=== PATIENT | female | born 1995 | race Caucasian/White ===

== ENCOUNTER 2021-12-12 00:23 | Inpatient (IN) | payer SELFPAY ==
[2021-12-12] VITALS (1252 sets, daily range): BP systolic 106–119; BP diastolic 60–71; PULSE 74–90; TEMP 97.7–99; O2SAT 66–100
[~2021-12-12] VITALS: Ht 177.8 cm; Wt 79.9 kg
[2021-12-12 00:35] LABS: BASO % 0.2 % (0.0-2.0); GRAN # 8.2 K/mm3 (1.4-6.5); GRAN % 80.5 % (42.2-75.2); HEMATOCRIT 37.8 % (37.0-47.0); HEMOGLOBIN 12.4 g/dl (12.5-16.0); LYMPH # 1.3 K/mm3 (1.2-3.4); LYMPH % 13.1 % (20.0-51.0); MEAN CELL VOLUME 89 fl (80.0-100.0); MEAN CORPUSCULAR HEMOGLOBIN 29 pg (27-31); MEAN CORPUSCULAR HGB CONC 33 g/dl (33.0-37.0); MEAN PLATELET VOLUME 10.8 fl (7.4-10.4); MONO # 0.6 K/mm3 (0.1-0.6); PLATELET COUNT 191 K/mm3 (130-400); RED BLOOD COUNT 4.26 M/mm3 (4.10-5.30); REDCELL DISTRIBUTION WIDTH-CV 12.9 % (11.5-14.5)
[2021-12-12 00:57] LABS: ALANINE AMINOTRANSFERASE 14 U/L (0-55); ALBUMIN 4.3 gm/dL (3.5-5.0); ALKALINE PHOSPHATASE 39 U/L (40-150); ANION GAP 12 mmol/L (7-16); AST,SGOT 14 U/L (5-34); BILIRUBIN,TOTAL 0.8 mg/dL (0.2-1.2); BLOOD UREA NITROGEN 8 mg/dL (7-19); CALCIUM 8.8 mg/dL (8.4-10.2); CARBON DIOXIDE 21 mmol/L (22-29); CHLORIDE 108 mmol/L (98-107); CREATININE, serum 0.81 mg/dL (0.57-1.11); GLUCOSE 129 mg/dL (70-99); POTASSIUM 3.2 mmol/L (3.5-4.5); SODIUM 141 mmol/L (136-145)
[2021-12-12 00:58] LABS: ACETAMINOPHEN < 1.0 ug/mL (10-30); ALCOHOL(ethanol),MEDICAL < 10 mg/dL (0-10); SALICYLATE < 5.0 mg/dL (15.0-30.0)
--- NOTE | 2021-12-12 02:41 | NUR ---
Patient arrived to ICU 8 at 0210. Patient alert and orientated. Answering with minimal words. Placed in perdomo gown and suicide precautions and seizure precautions. Patient educated on plan of care. Belongings sent to security by ED nurse. Did have one episode of emesis while in room. Green bile. Patient denies feeling suicidal at this time. 0242: Alisa from posion control called for updates. Provided. QRSd on recent EKG 109. Alisa reported to closely monitor, goal under 100. Would also like CK added due to Rhabdo risk. 0250: Updated YANIQUE Ochoa. Added orders for CK. Updated potassium orders and patient emesis episode.
[2021-12-12 05:43] LABS: ALBUMIN 3.9 gm/dL (3.5-5.0); BILIRUBIN,TOTAL 0.8 mg/dL (0.2-1.2); CALCIUM 8.6 mg/dL (8.4-10.2); CREATININE, serum 0.75 mg/dL (0.57-1.11); TOTAL PROTEIN 6.4 gm/dL (6.2-8.1)
[2021-12-12 06:30] LABS: COLLECTION METHOD CLEAN CATCH
[2021-12-12 06:38] LABS: PH 6 (5-8); URINE APPEARANCE Clear (CLEAR/HAZY); URINE BACTERIA None Seen /hpf (NONE SEEN); URINE BILIRUBIN Negative (NEGATIVE); URINE BLOOD Negative (NEGATIVE); URINE COLOR Yellow (YELLOW); URINE GLUCOSE Negative (NEGATIVE); URINE KETONE 1+ (NEGATIVE); URINE LEUKOCYTE ESTERASE Negative (NEGATIVE); URINE NITRATE Negative (NEGATIVE); URINE PROTEIN(semi-quant) Negative (NEGATIVE); URINE RBC None Seen /hpf (0-2); URINE UROBILINOGEN Negative (NEGATIVE)
[2021-12-12 06:48] LABS: TRICYCLIC ANTIDEPRESS URINE NEGATIVE
--- NOTE | 2021-12-12 07:14 | NUR ---
Report given to PHYLLIS Kingsley
--- NOTE | 2021-12-12 08:51 | NUR ---
PSYCH CONSULT REQUEST FORM FAXED TO DR CHASE.
--- NOTE | 2021-12-12 09:26 | NUR ---
The patient was admitted for intentional overdose on Wellbutrin. She is on suicide precautions. SW met with the patient. The patient lives in [place] with her , Maykel ([phone]). She reports independence with ADLs and does not have any DME. The patient does not have a PCP and she was not interested in the hospital getting her set up with anyone. She receives her medications at [facility], when needed. The patient does not have a DPOA-HC and she was not interested in completing one at this time. The patient will likely need to be screened by [facility], once medically cleared. KANE to continue to follow.
[2021-12-12 18:26] LABS: CALCIUM 9.4 mg/dL (8.4-10.2); CREATININE, serum 1.05 mg/dL (0.57-1.11); POTASSIUM 3.8 mmol/L (3.5-4.5)
--- NOTE | 2021-12-12 19:54 | NUR ---
Assessment complete and charted. Denies needs.
[2021-12-13] VITALS (846 sets, daily range): BP systolic 104–123; BP diastolic 53–73; PULSE 51–84; TEMP 97.7–98.3; O2SAT 84–100
--- NOTE | 2021-12-13 01:39 | NUR ---
Alisa from posion control called for an update. Reports posion control is signing off the case at this time.
[2021-12-13 06:08] LABS: BASO % 0.4 % (0.0-2.0); EOS % 0.6 % (0.0-4.0); GRAN # 3.9 K/mm3 (1.4-6.5); HEMOGLOBIN 12.1 g/dl (12.5-16.0); LYMPH # 2.3 K/mm3 (1.2-3.4); LYMPH % 33.5 % (20.0-51.0); MEAN CELL VOLUME 91 fl (80.0-100.0); MEAN CORPUSCULAR HEMOGLOBIN 29 pg (27-31); MEAN CORPUSCULAR HGB CONC 32 g/dl (33.0-37.0); MEAN PLATELET VOLUME 10.8 fl (7.4-10.4); MONO # 0.6 K/mm3 (0.1-0.6); MONO % 8.4 % (1.7-9.3); PLATELET COUNT 192 K/mm3 (130-400); RED BLOOD COUNT 4.16 M/mm3 (4.10-5.30); REDCELL DISTRIBUTION WIDTH-CV 13.3 % (11.5-14.5)
[2021-12-13 06:32] LABS: ALBUMIN 4.1 gm/dL (3.5-5.0); BILIRUBIN,TOTAL 0.8 mg/dL (0.2-1.2); CALCIUM 9.2 mg/dL (8.4-10.2); CREATININE, serum 0.86 mg/dL (0.57-1.11); MAGNESIUM 2.2 mg/dL (1.6-2.6); POTASSIUM 4.1 mmol/L (3.5-4.5); TOTAL PROTEIN 6.8 gm/dL (6.2-8.1)
--- NOTE | 2021-12-13 06:34 | NUR ---
Patient had uneventful night. Resting in bed this AM
--- NOTE | 2021-12-13 07:29 | NUR ---
Report given to PHYLLIS Kingsley
--- NOTE | 2021-12-13 09:49 | NUR ---
This morning the patient declines thoughts of suicide and does not wish to do inpatient treatment. The patient does not believe that is the environment for her. Pt does understand the importance of treatment.
--- NOTE | 2021-12-13 10:02 | NUR ---
[facility] notified of need for screen.
--- NOTE | 2021-12-13 10:43 | NUR ---
1016 - FAX CONFIRMATION FOR DOCUMENTS SENT TO [facility].
--- NOTE | 2021-12-13 10:47 | NUR ---
A psych consult was ordered yesterday and the psychiatrist met with the patient. The psychiatrist is recommending inpatient treatment. The patient is declining inpatient treatment at this time. The patient has been medically cleared and the clinical team is ready for [facility] to screen the patient. The patient's RN has contacted and faxed the patient's records to [facility] for them to screen the patient. SW to continue to follow.
--- NOTE | 2021-12-13 14:19 | NUR ---
KANE staffed with the PHYLLIS. [facility] screened the patient and the patient is able to return home with a safety plan. The patient is to discharge home today, 12/13. No additional needs at this time.
--- NOTE | 2021-12-13 14:27 | NUR ---
PT DISCHARGED WITH [facility] SAFETY PLAN HOME WITH .
== END 2021-12-13 14:25 | disposition home or self-care (01) | DRG 918 ==
LOC: COL.ER 00:23 → ICU 01:26 → EDBEDREQ 01:45 → ICU 11:50
PROVIDERS: Emergency Medicine; Physician Assistant; ADMIT Internal Medicine
DX: T43.292A Poisoning by other antidepressants, intentional self-harm, initial encounter (principal); F43.21 Adjustment disorder with depressed mood
CPT/HCPCS: 99239; J2405; J3480; J7030